=== PATIENT | male | born 1955 | race Caucasian/White ===

== ENCOUNTER 2017-02-08 08:00 | Day surgery (SDC) | payer OTHER ==
--- NOTE | 2017-02-04 13:18 | HISTORY AND PHYSICAL E ---
History and Physical NAME: HERBERT HEMPHILL : 1955 AGE: 61Y ADMITTED: 02/08/2017 ROOM: CHIEF COMPLAINT: Colon screening, history of polyps. PLAN: Colonoscopy. PAST SURGICAL HISTORY: Patient did have shoulder surgery in 2002. REVIEW OF SYSTEMS: CARDIAC: Negative. RESPIRATORY: Negative. GASTROINTESTINAL: Reflux. History of polyps. NEUROLOGICAL: Negative. FAMILY HISTORY: Father is . Mom is alive. PHYSICAL EXAMINATION: VITAL SIGNS: Blood pressure 150/80, pulse 80, respirations 20, temp is 98. HEAD, EYES, EARS, NOSE, THROAT: Normal. NECK: Supple. LUNGS: Clear. ABDOMEN: Soft. NEUROLOGIC: Negative. Patient did have upper scope and colonoscope. The patient was seen in 2012 regarding reflux. Scope shows no ulcers and no bleeding. He did have mild gastritis, mild esophagitis, mild duodenitis. Colonoscopy done in 2011 showed 3 mm right colon polyps and diverticulosis in the sigmoid. In the ascending colon, polyp was adenoma polyps. SOCIAL HISTORY: Does not smoke. Does not drink. ALLERGIES: No known allergies. Shoulder surgery in 2001 and 2002. CONCLUSION: Colon exam. History of adenoma polyps right colon. History of diverticulosis. MEDICATIONS: Nexium for reflux. Admit 02/08/2017. DICTATING PHYSICIAN: MARILIN BROWN M.D. [id number] PHY#: [id number] ID: [id number] JOB#: [id number] ACCT: [id number] cc:MARILIN BROWN M.D. >
[~2017-02-08 08:00] MED LIST: EPINEPHRINE INJ 1 MG/10 ML DISP.SYRIN ONE; FENTANYL CITRATE INJ/PF 100 MCG/2 ML AMPUL ONE; FLUMAZENIL INJ 0.5 MG/5 ML VIAL IV ONE; GLUCAGON,HUMAN RECOMB 1 MG INJ ONE; GLYCOPYRROLATE INJ 0.4 MG/2 ML VIAL ONE; LIDOCAINE 2% JELLY 30 ML TUBE ONE; NALOXONE HCL INJ/PF 0.4 MG/1 ML SDV ONE; ONDANSETRON HCL INJ/PF 4 MG/2 ML SDV ONE
[2017-02-08] MEDS: MIDAZOLAM 2 MG/2 ML INJ ONE ×2 (08:26→08:30)
[2017-02-08] MEDS ORDERED: SIMETHICONE 80 MG TAB.CHEW ONE (09:14)
[2017-02-08 10:08] VITALS: BP 102/63
--- NOTE | 2017-02-08 12:18 | DISCHARGE SUMMARY E ---
Discharge Summary NAME: HERBERT HEMPHILL : 1955 AGE: 61Y ADMITTED: 02/08/2017 DISCHARGED: HISTORY AND HOSPITAL COURSE: Patient is 61, presented for colon screening. He does have history of adenomatous polyp in the cecum. Biopsy obtained. FINDINGS: Today's colonoscopy shows no polyps. Sigmoid descending colon: Diverticulosis. There was moderate amount of liquid stool in the right colon. MEDICATIONS: Avoid aspirin and nonsteroidal for 3 days. ACTIVITY: Avoid driving today. Avoid heavy lifting. DIET: Soft, low-residual today. FINAL DIAGNOSIS: DIVERTICULOSIS. DISCHARGE PLAN: 1. Soft low-residual diet today. 2. Consideration, follow-up colonoscopy, 3 years. 3. Followup office visit in a few days. DICTATING PHYSICIAN: MARILIN BROWN M.D. [id number] PHY#: [id number] ID: [id number] JOB#: [id number] ACCT: [id number] cc:[facility] MARILIN BROWN M.D. >
--- NOTE | 2017-02-08 12:28 | OPERATIVE REPORT E ---
Operative Report NAME: HERBERT HEMPHILL : 1955 AGE: 61Y DATE OF SURGERY: 02/08/2017 ROOM: PREOPERATIVE DIAGNOSES: 1. History of polyp, adenoma, cecum. 2. Diverticulosis. POSTOPERATIVE DIAGNOSES: 1. No polyps on today's exam. 2. Sigmoid and descending colon diverticulosis. No diverticulitis. PROCEDURE: Colonoscopy. SURGEON: MARILIN BROWN M.D. PROCEDURE: Rectal exam normal. Prostate exam normal. Sigmoid and descending colon diverticulosis. Transverse colon normal. Ascending normal. Cecum normal. Moderate amount of liquid stool suctioned and lavaged. Scope withdrawn cecum, ascending, transverse, descending, sigmoid all the way to the rectum. CONCLUSIONS: 1. Sigmoid and descending colon diverticulosis. 2. No evidence of polyps. PLAN: 1. Soft diet today. 2. Consider follow-up colonoscopy in 3 years. DICTATING PHYSICIAN: MARILIN BROWN M.D. [id number] PHY#: [id number] ID: [id number] JOB#: [id number] ACCT: [id number] cc:[facility] MARILIN VALLES M.D. >
== END 2017-02-08 09:55 | disposition home or self-care (01) ==
LOC: END 08:00
PROVIDERS: ATTEND Specialist
PROC: 0DJD8ZZ Inspection of Lower Intestinal Tract, Via Natural or Artificial Opening Endoscopic (ICD-10-PCS; principal; 2017-02-08 08:00)
DX: Z12.11 Encounter for screening for malignant neoplasm of colon (principal); K57.30 Diverticulosis of large intestine without perforation or abscess without bleeding; Z86.010 Personal history of colon polyps; K21.9 Gastro-esophageal reflux disease without esophagitis; Z79.899 Other long term (current) drug therapy
CPT/HCPCS: 45378; J2250; J3010; J1610; J2405; J0171; J2310; J3490

== ENCOUNTER → 2017-07-26 | Outpatient (CLI) | payer OTHER ==
--- NOTE | 2017-07-26 10:13 | RADIOLOGY REPORT (SQ) ---
EXAM DESCRIPTION: CT ABD/PELVIS NO ORAL OR IV COMPLETED DATE/TIME: 07/26/2017 9:06 am REASON FOR STUDY: RENAL CYST (N28.1) N28.1 CYST OF KIDNEY, ACQUIRED COMPARISON: Abdominal ultrasound 08/25/2013, 06/06/2015, 06/19/2016 CT abdomen pelvis 07/13/2016, 11/05/2013 TECHNIQUE: CT scan of the abdomen and pelvis performed without intravenous or oral contrast. Images reviewed with lung, soft tissue, and bone windows. Reconstructed coronal and sagittal MPR images revi ewed. All images stored on PACS. All CT scanners at this facility use dose modulation, iterative reconstruction, and/or weight based d osing when appropriate to reduce radiation dose to as low as reasonably achievable (ALARA). [facility]: Dose Right [facility]: CareDose [facility]: Dose Right [facility]: Teradose 4D [facility]: [employer] RADIATION DOSE: Up-to-date CT equipment and radiation dose reduction techniques were employed. CTDIv ol: 14.9 mGy. DLP: 775 mGy-cm.mGy. LIMITATIONS: None. FINDINGS: LOWER CHEST: No significant findings. No nodules or infiltrates. NON-CONTRASTED LIVER, SPLEEN, ADRENALS: Evaluation limited by lack of IV contrast. No identified sign ificant masses. PANCREAS: No masses. No peripancreatic inflammatory changes. GALLBLADDER: Surgically absent. RIGHT KIDNEY AND URETER: No suspicious masses. Assessment limited by lack of IV contrast. Low-densit y cyst right mid-pole kidney unchanged from 07/13/2016. No significant calcifications. No hydronep hrosis or hydroureter. LEFT KIDNEY AND URETER: No suspicious masses. Assessment limited by lack of IV contrast. Left lower pole renal cortical cyst unchanged from 07/13/2016. 2mm stone left upper pole. No hydronephrosis or hydroureter. AORTA AND RETROPERITONEUM: No aneurysm. No retroperitoneal masses or adenopathy. BOWEL AND PERITONEAL CAVITY: No obvious masses or inflammatory changes. No free fluid. APPENDIX: Normal. PELVIS, BLADDER, AND ABDOMINAL WALL:No abnormal masses. No free fluid. Bladder normal. BONES: No significant findings. OTHER: The bilateral renal cysts are not as well seen on today's uncontrasted CT exam as on prior CT exams because of lack of contrast. Consider follow-up with bilateral renal ultrasound. IMPRESSION: NO SIGNIFICANT OR ACUTE PROCESS IN THE ABDOMEN OR PELVIS. COMMENT: Quality ID # [id number]: Final reports with documentation of one or more dose reduction techniques (e.g., Automated exposure control, adjustment of the mA and/or kV according to patient size, use of iterative reconstruction technique) TECHNICAL DOCUMENTATION: JOB ID: [id number] [employer]- All Rights Reserved
== END ==
LOC: RAD 08:42
PROVIDERS: ATTEND Urology
DX: N28.1 Cyst of kidney, acquired (principal)
CPT/HCPCS: 74176